=== PATIENT | male | born 1995 | race Caucasian/White ===

== ENCOUNTER 2018-05-28 18:51 | Emergency (ER) | payer SELFPAY ==
[~2018-05-28] VITALS: Ht 170.2 cm; Wt 76.0 kg
[2018-05-28] MEDS ORDERED: LIDOCAINE HCL/PF 1% 10 MG/ML 5ML VIAL IJ ONE (22:15)
[2018-05-28] MEDS ORDERED: TETANUS, DIPHTHERIA, PERTUSSIS VAC/PF 0.5ML (>7YR OLD) IM ONE (22:15)
[2018-05-28] MEDS ORDERED: BACITRACIN ZINC OINT UDPKT TOP ONE (22:15)
[2018-05-28 23:04] VITALS: BP 136/76
== END 2018-05-28 23:05 | disposition home or self-care (01) ==
LOC: ER 18:51
DX: S01.511A Laceration without foreign body of lip, initial encounter (principal); W01.118A Fall on same level from slipping, tripping and stumbling with subsequent striking against other sharp object, initial encounter; Y93.89 Activity, other specified; Y92.090 Kitchen in other non-institutional residence as the place of occurrence of the external cause; Z23 Encounter for immunization
CPT/HCPCS: 12011; 90471; 90715; 99283; J3490; Z7610

== ENCOUNTER 2018-06-03 17:26 | Emergency (ER) | payer SELFPAY ==
[~2018-06-03] VITALS: Ht 167.6 cm; Wt 75.0 kg
[2018-06-03 19:33] VITALS: BP 130/80
== END 2018-06-03 23:20 | disposition left against medical advice (07) ==
LOC: ER 17:26
DX: S01.511D Laceration without foreign body of lip, subsequent encounter (principal); Z53.21 Procedure and treatment not carried out due to patient leaving prior to being seen by health care provider; X58.XXXD Exposure to other specified factors, subsequent encounter

== ENCOUNTER 2018-06-07 08:01 | Emergency (ER) | payer SELFPAY ==
[~2018-06-07] VITALS: Ht 175.3 cm; Wt 75.0 kg
[2018-06-07 10:37] VITALS: BP 139/75
== END 2018-06-07 10:38 | disposition home or self-care (01) ==
LOC: ER 08:01
DX: Z48.02 Encounter for removal of sutures (principal)
CPT/HCPCS: 99281

== ENCOUNTER 2019-01-04 10:32 | Emergency (ER) | payer MEDICAID ==
[~2019-01-04] VITALS: Ht 172.7 cm; Wt 75.0 kg
[2019-01-04] MEDS ORDERED: AZITHROMYCIN 500 MG TABLET PO ONE (11:30)
[2019-01-04] MEDS ORDERED: CEFTRIAXONE SODIUM 250 MG/VIAL IM ONE (11:30)
[2019-01-04 13:48] VITALS: BP 148/99
== END 2019-01-04 13:51 | disposition home or self-care (01) ==
LOC: ER 10:32
DX: R21 Rash and other nonspecific skin eruption (principal)
CPT/HCPCS: 96372; 99283; J0696

== ENCOUNTER 2023-11-14 07:03 | Emergency (ER) | payer MEDICAID ==
[~2023-11-14] VITALS: Ht 172.7 cm; Wt 65.0 kg
[2023-11-14 07:34] VITALS: O2SAT 96
[2023-11-14] MEDS ORDERED: ACETAMINOPHEN 325MG TABLET PO ONE (08:00)
[2023-11-14] MEDS ORDERED: AMOX1TAB16 PO (09:51)
[2023-11-14] MEDS ORDERED: TOPUD PO (09:51)
[2023-11-14 10:19] VITALS: BP 119/79; PULSE 85; RESP 18; TEMP 98.5
== END 2023-11-14 10:21 | disposition home or self-care (01) ==
LOC: ER 07:03
DX: J02.9 Acute pharyngitis, unspecified (principal); Z20.822 Contact with and (suspected) exposure to COVID-19
CPT/HCPCS: 87070; 87426; 87430; 99283